=== PATIENT | male | born 1940 | race Caucasian/White ===

== ENCOUNTER 2021-09-28 20:18 | Observation (INO) | payer MEDICARE ==
--- NOTE | 2021-09-28 21:12 | XR ---
EXAMINATION TYPE: XR chest 2V DATE OF EXAM: 09/28/2021 COMPARISON: NONE HISTORY: Chest pain TECHNIQUE: 2 views FINDINGS: Heart is normal. Lungs are clear of infiltrate. No heart failure. There are no hilar masses . Costophrenic angles are clear. IMPRESSION: Normal chest.
[2021-09-28 21:27] LABS: Basophils # (A) 0.1 k/uL (0-0.2); Basophils % (A) 1 %; Eosinophils # (A) 0.2 k/uL (0-0.7); Eosinophils % (A) 3 %; HCT 40.4 % (39.0-53.0); HGB 13.2 gm/dL (13.0-17.5); Lymphocytes # (A) 2.9 k/uL (1.0-4.8); Lymphocytes % (A) 36 %; MCHC 32.7 g/dL (31.0-37.0); MCV 91.5 fL (80.0-100.0); Mean Platelet Volume 9.2; Monocytes # (A) 0.5 k/uL (0-1.0); Monocytes % (A) 6 %; Neutrophils % (A) 51 %; Platelet Count 203 k/uL (150-450); RBC 4.41 m/uL (4.30-5.90); RDW 13.2 % (11.5-15.5); WBC 7.8 k/uL (3.8-10.6)
[2021-09-28 21:38] LABS: INR 0.9 (<1.2); Partial Thromboplastin Time 24.3 sec (22.0-30.0); Prothrombin Time 10.3 sec (9.0-12.0)
[2021-09-28 21:46] LABS: Albumin 4.6 g/dL (3.5-5.0); Calcium 9.5 mg/dL (8.4-10.2); Magnesium 1.7 mg/dL (1.6-2.3); Potassium 4.3 mmol/L (3.5-5.1); Total Bilirubin 0.3 mg/dL (0.2-1.3); Total Protein 7.3 g/dL (6.3-8.2)
--- NOTE | 2021-09-28 23:18 | ED ---
Chest Pain HPI - General Chief Complaint: Chest Pain Stated Complaint: Chest Pain Time Seen by Provider: 09/28/21 23:05 Source: patient Mode of arrival: ambulatory Limitations: no limitations - History of Present Illness Initial Comments: This patient is an 81-year-old man who presents with complaint of chest pain that had come on around 2 PM. The patient states that it has been intermittent. It will last a number of minutes at a time and has recurred about 5 times throughout the day. He has not had any pain since arriving here. He describes as an aching. He indicates to the left of the sternum. He states that it had come on initially while he was at rest, Though he did work out earlier in the day, doing pushups in the morning. He has not had any associated symptoms. No dyspnea, diaphoresis, nausea or vomiting. No palpitations, lightheadedness or syncope. MD Complaint: chest pain -: hour(s) Onset: during rest Pain Location: left chest Pain Radiation: none Quality: aching Consistency: intermittent, now resolved Improves With: nothing Worsens With: nothing Treatments Prior to Arrival: none - Related Data Home Medications Medication Instructions Recorded Confirmed Garlic 1,000 mg PO DAILY 09/29/21 09/29/21 Multivitamins, Thera [Multivitamin 1 tab PO DAILY 09/29/21 09/29/21 (formulary)] metFORMIN HCL [Glucophage] 1,000 mg PO BID-W/MEALS 09/29/21 09/29/21 Allergies Allergy/AdvReac Type Severity Reaction Status Date / Time No Known Allergies Allergy Verified 09/29/21 07:11 Review of Systems ROS Statement: Those systems with pertinent positive or pertinent negative responses have been documented in the HPI. ROS Other: All systems not noted in ROS Statement are negative. Constitutional: Denies: fever, chills Respiratory: Reports: cough (States she has "smoker's cough). Denies: dyspnea Cardiovascular: Reports: as per HPI, chest pain. Denies: palpitations, dyspnea on exertion, orthopnea, edema, syncope Gastrointestinal: Denies: abdominal pain, nausea, vomiting, melena, hematochezia Genitourinary: Denies: dysuria, hematuria Musculoskeletal: Denies: back pain Skin: Denies: rash Neurological: Denies: headache, weakness, numbness EKG Findings - EKG Results: EKG: interpreted by JUANCARLOS DEE, sinus rhythm (Rate 68 bpm), normal axis, normal QRS, normal ST/T, no acute changes Past Medical History Past Medical History: Chest Pain / Angina, COPD, Diabetes Mellitus History of Any Multi-Drug Resistant Organisms: None Reported Past Surgical History: Back Surgery Additional Past Surgical History / Comment(s): Cardiac stent Past Psychological History: No Psychological Hx Reported Smoking Status: Current every day smoker Past Alcohol Use History: Rare Past Drug Use History: Marijuana General Exam Limitations: no limitations General appearance: alert, in no apparent distress Head exam: Present: atraumatic, normocephalic Eye exam: Present: normal appearance. Absent: scleral icterus, conjunctival injection Neck exam: Present: normal inspection Respiratory exam: Present: normal lung sounds bilaterally. Absent: respiratory distress, wheezes, rales, rhonchi, stridor, chest wall tenderness, accessory muscle use Cardiovascular Exam: Present: regular rate, normal rhythm, normal heart sounds. Absent: systolic murmur, diastolic murmur, rubs, gallop GI/Abdominal exam: Present: soft. Absent: distended, tenderness, guarding, rebound, rigid, mass Extremities exam: Present: normal inspection, normal capillary refill. Absent: pedal edema, calf tenderness Back exam: Present: normal inspection. Absent: CVA tenderness (R), CVA tenderness (L) Neurological exam: Present: alert Skin exam: Present: warm, dry, intact, normal color. Absent: rash Course Vital Signs 09/28/21 09/28/21 09/29/21 20:24 23:14 02:00 Temperature 97.5 F L Pulse Rate 82 65 Respiratory 20 16 Rate Blood Pressure 148/79 154/82 141/85 O2 Sat by Pulse 99 98 Oximetry 09/29/21 09/29/21 09/29/21 04:00 06:00 07:57 Temperature 97.7 F Pulse Rate 59 L 63 65 Respiratory 16 16 18 Rate Blood Pressure 141/83 144/82 O2 Sat by Pulse 98 99 Oximetry Procedures - [place] Protocol (Time Out) Nurse: Chikis Mike Disposition Clinical Impression: Chest pain, Elevated troponin I level Disposition: [facility] Condition: Good Is patient prescribed a controlled substance at d/c from ED?: No Time of Disposition: 23:45
[2021-09-28] MEDS ORDERED: ASPIRIN 81 MG PO STA (23:44)
[2021-09-28] MEDS ORDERED: NITROGLYCERIN SL TABS 0.4 MG TAB SUBLINGUAL PRN (23:44)
[2021-09-29] MEDS: SODIUM CHLORIDE 0.9% 1,000 ML IV SCH (00:27)
--- NOTE | 2021-09-29 02:48 | P.HPIM ---
History of Present Illness H&P Date: 09/29/21 The patient is an 81-year-old male with a PMH of coronary artery disease status post stent to LAD 15 years ago, and ongoing tobacco abuse who presents to the emergency room with complaints of chest discomfort. The patient reports that he was at the gym earlier today, doing his regular weight lifting exercises when he suddenly developed sharp left chest and sternal chest discomfort, 10 out of 10, lasting only for a few seconds, resolving spontaneously. He experienced a total of 3 such episodes throughout the day today last of which occurred an hour and half prior to presentation, which prompted him to come to the emergency room. He denies associated shortness of breath, nausea, diaphoresis, or dizziness. He denied fever, chills, cough. EKG in the emergency room revealed sinus rhythm at [address]/T-wave changes noted as reviewed by me. Chest x-ray was unremarkable. Laboratory evaluation revealed a troponin of 0.046. Review of systems: Pertinent positives and negatives as discussed in HPI, a complete review of systems was performed and all other systems are negative. Physical examination: General: non toxic, no distress, appears at stated age, normal weight Derm: no unusual rashes/lesions, warm Head: atraumatic, normocephalic, symmetric Eyes: EOMI, no lid lag, anicteric sclera, pupils equal round reactive to light ENT: Nose and ears atraumatic Neck: No cervical lymphadenopathy, trachea midline, supple Mouth: no lip lesion, mucus membranes moist Cardiovascular: S1S2 reg, no murmur, positive dorsalis pedis pulse bilateral, no edema, left lower costosternal joint tenderness Lungs: CTA bilateral, no rhonchi, no rales, no accessory muscle use Abdominal: soft, nontender to palpation, no guarding Ext: muscle strength 5 out of 5 in all 4 extremities grossly, no gross muscle atrophy, no contractures, Neuro: CN II-XI grossly intact, no gross focal neuro deficits Psych: Alert, oriented, appropriate affect Assessment/plan Atypical chest pain, with borderline troponin elevation -Continue with aspirin, statin -Cardiology consult -Cardiac monitoring -Trend troponin DVT prophylaxis -Heparin subcu The patient is admitted with an anticipated less than 2 midnight stay for evaluation of chest pain. CODE STATUS: Full Code Discussed with: Patient Anticipated discharge date: In a.m. Anticipated discharge place: Home Past Medical History Past Medical History: Chest Pain / Angina, COPD, Diabetes Mellitus History of Any Multi-Drug Resistant Organisms: None Reported Past Surgical History: Back Surgery Additional Past Surgical History / Comment(s): Cardiac stent Past Psychological History: No Psychological Hx Reported Smoking Status: Current every day smoker Past Alcohol Use History: Rare Past Drug Use History: Marijuana Medications and Allergies Allergies Allergy/AdvReac Type Severity Reaction Status Date / Time No Known Allergies Allergy Verified 09/28/21 20:28 Physical Exam Vitals: Vital Signs Temp Pulse Resp BP Pulse Ox 09/28/21 23:14 65 16 154/82 98 09/28/21 20:24 97.5 F L 82 20 148/79 99 Intake and Output 09/28/21 09/28/21 09/29/21 14:59 22:59 06:59 Other: Weight 72.575 kg Results CBC & Chem 7: 09/28/21 21:16 09/28/21 21:16 Labs: Abnormal Lab Results - Last 24 Hours (Table) 09/28/21 09/28/21 09/29/21 Range/Units 21:16 21:16 00:26 Glucose 106 H (74-99) mg/dL Troponin I 0.046 H* 0.048 H* (0.000-0.034) ng/mL
[2021-09-29] MEDS: ATORVASTATIN 80 MG TAB PO SCH ×2 (04:17→20:50)
[2021-09-29] MEDS ORDERED: HEPARIN SODIUM,PORCINE/PF 5,000 UNIT/0.5 ML SYRINGE SQ SCH (08:00)
[2021-09-29] MEDS ORDERED: ASPIRIN 325 MG TAB PO SCH (09:00)
[2021-09-29 09:43] LABS: Chol/HDL Ratio 2.95 Ratio; LDL Cholesterol,Calculated 70.2 mg/dL (0.0-131.0); VLDL Calculation 13.76 mg/dL (5.00-40.00)
[2021-09-29] MEDS ORDERED: HEPARIN SODIUM 1,000 UN/ML (10ML VL) IV ONE (10:10)
[2021-09-29] MEDS ORDERED: HEPARIN SODIUM 1,000 UN/ML (10ML VL) IV PRN (10:10)
[2021-09-29] MEDS ORDERED: HEPARIN SOD,PORK IN 0.45% NACL 25,000 UNIT in 0.45% NACL 1 250ML.BAG IV SCH (10:15)
--- NOTE | 2021-09-29 10:57 | P.CRDCN ---
History of Present Illness History of present illness: HISTORY OF PRESENTING ILLNESS This is a pleasant 81-year-old male past medical history significant for coronary artery disease s/p PCI in 1999 in [place], type 2 diabetes, chronic nicotine dependence. He did follow with Dr. Guerrier, but secondary to insurance issues does not follow with a bereavement program coordinator. We have been asked to see in consultation for chest pain and elevated troponin. Patient presents emergency department with episodes of chest pain that began yesterday. He states that yesterday morning he went to the gym, he did multiple weight lifting exercises including chest exercises on weight machines. When driving home he had 10/10 "intense" sharp left sided chest pain. It lasted about 2-3 seconds and resolved spontaneously. This re-occurred 4-5 times. Non-radiating. Non-exertional. He states this is different than his prior stent placements. He denies any associated shortness of breath, lightheadedness, dizziness, palpitations, diaphoresis, nausea, vomiting. He states to the chest pain returning he took two 81 mg aspirins and presented to the emergency department for further evaluation. His chest pain has resolved. He does have some tenderness to palpation to his chest. Deep breathing does not aggravate his chest pain He denies any further stent placements. He denies any history of hypertension, heart failure, arrhythmia, Stroke. DIAGNOSTICS EKG reveals sinus rhythm, heart rate 68, T wave inversion in lead aVL, no significant ST-T wave abnormalities suggesting ischemia Telemetry tracings indicate sinus rhythm HR 50s-60s Chest xray no acute cardiopulmonary process Laboratory reviewed, troponin 0.043, CBC unremarkable, sodium 139, potassium 4.3, BUN 18, serum creatinine 0.9, magnesium 1.7, triglycerides 68, cholesterol 127, LDL 70, HDL 40. Current home cardiac medications include metformin, multivitamin, garlic, aspirin REVIEW OF SYSTEMS At the time of my exam: CONSTITUTIONAL: Denies fever or chills. CARDIOVASCULAR: Denies chest pain, shortness of breath, orthopnea, PND or palpitations. RESPIRATORY: Denies cough. GASTROINTESTINAL: Denies abdominal pain, diarrhea, constipation, nausea or vomiting. MUSCULOSKELETAL: Denies myalgias. NEUROLOGIC: Denies numbness, tingling, headacbe or weakness. ENDOCRINE: Denies fatigue, weight change, polydipsia or polyurina. GENITOURINARY: Denies burning, hematuria or urgency with micturation. HEMATOLOGIC: Denies history of anemia or bleeding. PHYSICAL EXAMINATION Blood pressure 144/82, heart rate 65, afebrile, saturation 99% room air CONSTITUTIONAL: No apparent distress. HEENT: Head is normocephalic. Pupils are equal, round. Sclerae anicteric. Mucous membranes of the mouth are moist. No JVD. No carotid bruit. CHEST EXAMINATION: Lungs are diminished to auscultation. There is some chest w all tenderness is noted on palpation or with deep breathing. HEART EXAMINATION: Regular rate and rhythm. S1, S2 heard. No murmurs, gallops or rub. ABDOMEN: Soft, nontender. Positive bowel sounds. EXTREMITIES: 2+ peripheral pulses, no lower extremity edema and no calf tenderness. NEUROLOGIC EXAMINATION: Patient is awake, alert and oriented x3. ASSESSMENT Elevated troponin, unclear etiology Chest pain, atypical symptoms however cannot rule out ischemia at this time, concern for possible NSTEMI, possible musculoskeletal component as well Coronary artery disease with PCI in 1999 Type 2 Diabetes Chronic nicotine dependence PLAN Start IV Heparin drip Continue aspirin, statin CK obtained, normal 2-D echocardiogram was obtained which revealed an EF of 5560%, no significant wall motion or valve abnormalities. Continue cardiac telemetry NPO after midnight Plan for cardiac catheterization with Dr. Mg tomorrow morning. I have discussed the risks, benefits and alternative therapies for the above- mentioned procedure and for both sedation/analgesia as well as necessary blood product administration, if indicated, as they pertain to this patient. The patient has indicated understanding and acceptance of the risks and procedures discussed. Questions have been answered appropriately and he is agreeable to move forward with the above-stated procedure. Further recommendations based on clinical course Nurse practitioner note has been reviewed by physician. Signing provider agrees with the documented findings, assessment, and plan of care. Past Medical History Past Medical History: Chest Pain / Angina, COPD, Diabetes Mellitus History of Any Multi-Drug Resistant Organisms: None Reported Past Surgical History: Back Surgery Additional Past Surgical History / Comment(s): Cardiac stent Past Psychological History: No Psychological Hx Reported Smoking Status: Current every day smoker Past Alcohol Use History: Rare Past Drug Use History: Marijuana Medications and Allergies Home Medications Medication Instructions Recorded Confirmed Type Garlic 1,000 mg PO DAILY 09/29/21 09/29/21 History Multivitamins, Thera [Multivitamin 1 tab PO DAILY 09/29/21 09/29/21 History (formulary)] metFORMIN HCL [Glucophage] 1,000 mg PO BID-W/MEALS 09/29/21 09/29/21 History Allergies Allergy/AdvReac Type Severity Reaction Status Date / Time No Known Allergies Allergy Verified 09/29/21 07:11 Physical Exam Vitals: Vital Signs Temp Pulse Resp BP Pulse Ox 09/29/21 06:00 63 16 09/29/21 04:00 59 L 16 141/83 98 09/29/21 02:00 141/85 09/28/21 23:14 65 16 154/82 98 09/28/21 20:24 97.5 F L 82 20 148/79 99 Intake and Output 09/28/21 09/29/21 09/29/21 22:59 06:59 14:59 Other: Weight 72.575 kg Results 09/28/21 21:16 09/28/21 21:16 Cardiac Enzymes 09/28/21 09/28/21 09/29/21 Range/Units 21:16 21:16 00:26 AST 22 (17-59) U/L Troponin I 0.046 H* 0.048 H* (0.000-0.034) ng/mL 09/29/21 Range/Units 04:44 AST (17-59) U/L Troponin I 0.044 H* (0.000-0.034) ng/mL Coagulation 09/28/21 Range/Units 21:16 PT 10.3 (9.0-12.0) sec APTT 24.3 (22.0-30.0) sec CBC 09/28/21 Range/Units 21:16 WBC 7.8 (3.8-10.6) k/uL RBC 4.41 (4.30-5.90) m/uL Hgb 13.2 (13.0-17.5) gm/dL Hct 40.4 (39.0-53.0) % Plt Count 203 (150-450) k/uL Comprehensive Metabolic Panel 09/28/21 Range/Units 21:16 Sodium 139 (137-145) mmol/L Potassium 4.3 (3.5-5.1) mmol/L Chloride 105 (98-107) mmol/L Carbon Dioxide 23 (22-30) mmol/L BUN 18 (9-20) mg/dL Creatinine 0.98 (0.66-1.25) mg/dL Glucose 106 H (74-99) mg/dL Calcium 9.5 (8.4-10.2) mg/dL AST 22 (17-59) U/L ALT 18 (4-49) U/L Alkaline Phosphatase 61 (38-126) U/L Total Protein 7.3 (6.3-8.2) g/dL Albumin 4.6 (3.5-5.0) g/dL Current Medications Generic Name Dose Route Start Last Admin Trade Name Freq PRN Reason Stop Dose Admin Aspirin 325 mg 09/29/21 09:00 Aspirin 325 Mg Tab PO DAILY JAVIER Atorvastatin Calcium 80 mg 09/29/21 02:47 09/29/21 04:17 Atorvastatin 80 Mg Tab PO 80 mg HS JAVIER Administration Heparin Sodium (Porcine) 5,000 unit 09/29/21 08:00 Heparin Sodium,Porcine/Pf 5,000 Unit/0.5 Ml Syringe SQ Q8HR JAVIER Sodium Chloride 1,000 mls @ 20 mls/hr 09/28/21 23:45 09/29/21 00:27 Saline 0.9% IV 20 mls/hr .Q24H JAVIER Administration Nitroglycerin 0.4 mg 09/28/21 23:44 Nitroglycerin Sl Tabs 0.4 Mg Tab SUBLINGUAL Q5M PRN Chest Pain Intake and Output 09/28/21 09/29/21 09/29/21 22:59 06:59 14:59 Other: Weight 72.575 kg 09/28/21 21:16 09/28/21 21:16
--- NOTE | 2021-09-29 11:02 | CA ---
Transthoracic Echo Report Name: Imer Rivas Age: 81 Gender: M : 1940 Exam Date: 09/29/2021 10:35 Exam Location: [facility] Ht (in): 71 Wt (lb): 160 Ordering Physician: Abigail Turner Attending/Referring Phys: Car Cleaner Usha Lamb RDCS Procedure CPT: Indications: elevated troponin Cardiac Hx: Technical Quality: Good Contrast 1: Total Dose (mL): Contrast 2: Total Dose (mL): MEASUREMENTS (Male / Female) Normal Values 2D ECHO LV Diastolic Diameter PLAX 2.8 cm 4.2 - 5.9 / 3.9 - 5.3 cm LV Systolic Diameter PLAX 1.1 cm IVS Diastolic Thickness 1.1 cm 0.6 - 1.0 / 0.6 - 0.9 cm LVPW Diastolic Thickness 0.8 cm 0.6 - 1.0 / 0.6 - 0.9 cm LV Relative Wall Thickness 0.7 LA Volume 28.7 cm??? 18 - 58 / 22 - 52 cm??? M-MODE Aortic Root Diameter MM 3.9 cm LA Systolic Diameter MM 2.8 cm LA Ao Ratio MM 0.7 MV E Point Septal Separation 2.8 cm AV Cusp Separation MM 2.3 cm DOPPLER AV Peak Velocity 87.1 cm/s AV Peak Gradient 3.0 mmHg MV Area PHT 3.3 cm??? MR Peak Velocity 236.9 cm/s MR Peak Gradient 22.4 mmHg Mitral E Point Velocity 73.7 cm/s Mitral A Point Velocity 83.7 cm/s Mitral E to A Ratio 0.9 MV Deceleration Time 229.8 ms MV E' Velocity 5.8 cm/s Mitral E to MV E' Ratio 12.6 TR Peak Velocity 69.7 cm/s TR Peak Gradient 1.9 mmHg Right Ventricular Systolic Press 6.9 mmHg FINDINGS Left Ventricle Normal Left ventricular size, wall thickness, systolic function with no obvious regional wall motion abnormalities. Normal Left ventricular diastolic filling pattern. Left ventricular ejection fraction is estimated at 55-60 %. Right Ventricle The right ventricle is normal in size and function. Right Atrium The right atrium is normal in size. Left Atrium The left atrium is normal in size. Mitral Valve Structurally normal mitral valve without significant stenosis or prolapse. There is mild mitral regurgitation. Aortic Valve Structurally normal aortic valve without significant sclerosis or stenosis. There is no aortic regurgitation. Tricuspid Valve Structurally normal tricuspid valve without significant stenosis. Pulmonary artery systolic pressure is normal. Mild tricuspid regurgitation. Pulmonic Valve Structurally normal pulmonic valve without significant stenosis. There is no pulmonic regurgitation. Pericardium Normal pericardium without effusion. Aorta Normal aortic root dimension. CONCLUSIONS #1. Normal left ventricular size and function. #2. Mild tricuspid regurgitation Previewed by: Dr. Vadim Haley MD (Electronically Signed) Final Date: 29 September 2021 11:01
[2021-09-29 11:21] LABS: INR 0.9 (<1.2); Partial Thromboplastin Time 24.3 sec (22.0-30.0); Prothrombin Time 10.4 sec (9.0-12.0)
[2021-09-29 12:02] LABS: Glucose,Whole Blood 103 mg/dL (75-99)
[2021-09-29] MEDS ORDERED: ALPRAZolam 0.5 MG TAB PO PRN (12:08)
[2021-09-29] MEDS ORDERED: ALPRAZolam 0.25 MG TAB PO PRN (12:08)
[2021-09-29 16:14] LABS: Glucose,Whole Blood 112 mg/dL (75-99)
[2021-09-29 20:55] LABS: Glucose,Whole Blood 109 mg/dL (75-99)
[2021-09-30] MEDS ORDERED: SODIUM CHLORIDE 0.9% 1,000 ML in EMPTY BAG 1 BAG IV SCH
[2021-09-30] MEDS: SODIUM CHLORIDE 0.9% 1,000 ML IV SCH (00:37)
[2021-09-30 05:30] LABS: Glucose,Whole Blood 107 mg/dL (75-99)
[2021-09-30] MEDS ORDERED: HEPARIN SODIUM,PORCINE 2,500 UNIT in SODIUM CHLORIDE 0.9% 250 ML IRRIGATION PRN (07:00)
[2021-09-30] MEDS ORDERED: HEPARIN SODIUM,PORCINE 10,000 UNIT in SODIUM CHLORIDE 0.9% 1,000 ML IRRIGATION PRN (07:00)
[2021-09-30] MEDS ORDERED: ASPIRIN 325 MG TAB PO STA (08:46)
[2021-09-30] MEDS ORDERED: ASPIRIN 81 MG PO SCH (09:00)
[2021-09-30] MEDS ORDERED: VERAPAMIL 2.5 MG/ML 2 ML AMP ONE (10:13)
[2021-09-30] MEDS ORDERED: HEPARIN SODIUM 1,000 UN/ML (10ML VL) ONE (10:41)
[2021-09-30] MEDS ORDERED: IV FLUID CONTINUATION 250 ML IV ONE (10:53)
[2021-09-30] MEDS: MIDAZOLAM 2 MG/2 ML VIAL IVP ONE ×2 (10:58→11:04)
[2021-09-30] MEDS ORDERED: LIDOCAINE 1% INJ 10MG/ML (30 ML VIAL-PF) SQ ONE (11:03)
[2021-09-30] MEDS ORDERED: HEPARIN SODIUM 1,000 UN/ML (10ML VL) IVP ONE (11:07)
[2021-09-30] MEDS ORDERED: IOPAMIDOL-370 125ML BTL INJ ONE (11:19)
[2021-09-30] MEDS ORDERED: RX INFO: IV CONTRAST WAS GIVEN 1 EACH MISC MISCELLANE PRN (11:30)
--- NOTE | 2021-09-30 11:42 | P.CARDCATH ---
Description of Procedure: Procedure: Left heart catheterization and coronary angiography Performed by: Dr. NILAM Mg Moderate conscious sedation time was 20 minutes. Patient was administered 1 circumflex oxygen saturation hemodynamics and EKG were monitored closely History: This patient was admitted to the hospital with episode of chest pain had mild troponin elevation. He has history of type 2 diabetes takes metformin and also has history of stenting of one of his coronary arteries details are not available and this was nearly 20 years ago. In view of elevated troponin risk factors and previous PCI he was advised cardiac catheter due discussion regarding risks and benefits and options. Patient understood R details and wish to proceed with the procedure Patient was referred for cardiac catheterization to evaluate for progression of CAD. Procedure Details: The risks, benefits, complications, treatment options, and expected outcomes were discussed with the patient. The patient and/or family concurred with the proposed plan, giving informed consent. Patient was brought to the fish hatchery laborer after IV hydration was begun and oral premedication was given. Patient was further sedated with midazolam. Patient was prepped and draped in the usual manner. Under strict aseptic precautions and local anesthesia a 6 Chinese introducer was placed in the right radial artery. Using a JL 3/5 and a JR 4/0 catheters I performed coronary angiography and the same JR catheter was used to check LV pressures and LV gram was not performed. After the procedure was completed the sheaths and catheters were all removed. Hemostasis was achieved with TR band. Saturation in the fingers of the right hand was about 99%. Moderate conscious sedation time was 20 minutes. Patient's oxygen saturation hemodynamics and EKG were monitored closely. Findings: Hemodynamics: The left ventricle end-diastolic pressure was 68 mmHg without any gradient across aortic valve Left Main: Shock patent vessel no significant disease bifurcates into LAD and circumflex. Mild calcification LAD: This vessel is of fair caliber and has mild to moderate calcification that is about a 35-45% lesion in the LAD. Mid LAD was stented, the stented segment is widely patent with good flow. There is a 35-45% narrowing in the proximal portion not critical flow is brisk gives off septal and diagonal branches and runs all the way to the apex supplying a sizable amount of myocardium. In the proximal one third of the vessel there is about a 40% narrowing smoked not significant. CIRC: This is a dominant vessel moderate calcification proximally has about a 40% narrowing then and gives off an obtuse minor branch which has another 40% narrowing and then continues in the AV groove and distally gives off PDA and PLV branches both of which have minor irregularities. There are multiple areas of narrowing of anywhere between 35-45% within the circumflex and obtuse marginal but no critical lesions are noted. RCA: This is a nondominant vessel FAIR caliber to start with but distally become smaller gives off some acute marginal branches, limited amount of myocardium being supplied by 8. Proximal portion is a 40% lesion Closure Device: TR band Complications: None Estimated Blood Loss: Minimal Impression: Normal filling pressures no gradient across aortic valve, left dominant system, previously stented mid LAD is widely patent with anywhere from 35-45% lesions involving the LAD proximal one third is a 40% lesion. Circumflex is dominant has a OM lesion and proximal circumflex of about 40% stenosis. RCA nondominant no significant disease Pre Procedure Diagnosis: CAD Final Post Procedure Diagnosis: Moderate CAD triple vessel Recommendation: Aggressive medical therapy and risk factor modification discussed with patient no family available Complications: None; patient tolerated the procedure well. Disposition: To 3 S. - hemodynamically stable. Condition: Stable Discharge Disposition: Per Dr. Thorpe
[2021-09-30 11:48] LABS: Glucose,Whole Blood 112 mg/dL (75-99)
[2021-09-30 12:40] LABS: Basophils # (A) 0.1 k/uL (0-0.2); Basophils % (A) 1 %; Eosinophils # (A) 0.1 k/uL (0-0.7); Eosinophils % (A) 2 %; HCT 43.7 % (39.0-53.0); HGB 13.6 gm/dL (13.0-17.5); Lymphocytes # (A) 2.2 k/uL (1.0-4.8); Lymphocytes % (A) 33 %; MCH 28.9 pg (25.0-35.0); MCHC 31.2 g/dL (31.0-37.0); MCV 92.8 fL (80.0-100.0); Mean Platelet Volume 8.9; Monocytes # (A) 0.4 k/uL (0-1.0); Monocytes % (A) 5 %; Neutrophils # (A) 3.7 k/uL (1.3-7.7); Neutrophils % (A) 56 %; Platelet Count 196 k/uL (150-450); RBC 4.71 m/uL (4.30-5.90); RDW 13.1 % (11.5-15.5); WBC 6.6 k/uL (3.8-10.6)
[2021-09-30 12:54] LABS: African American GFR (CKD) >90 (>60 ml/min/1.73 sqM); Anion Gap 8 mmol/L; Blood Urea Nitrogen 15 mg/dL (9-20); Carbon Dioxide 21 mmol/L (22-30); Chloride 110 mmol/L (98-107); Glucose 106 mg/dL (74-99); Non-African American GFR(CKD) 82 (>60 ml/min/1.73 sqM); Potassium 4.6 mmol/L (3.5-5.1); Sodium 139 mmol/L (137-145)
--- NOTE | 2021-09-30 13:09 | P.DS ---
Providers Date of admission: 09/30/21 07:18 Expected date of discharge: 09/30/21 Attending physician: Jesse Brownlee MD Consults: 09/28/21 23:44 Consult Physician Routine Consulting Provider: Keith Pollard Consult Reason/Comments: chest pain Do you want consulting provider notified?: Yes Primary care physician: Tiffany [facility] Course: Chest Pain Multi-vessel CAD HTN HLD DM, type II The patient is an 81-year-old male with a PMH of coronary artery disease status post stent to LAD 15 years ago, and ongoing tobacco abuse who presents to the emergency room with complaints of chest discomfort. EKG in the emergency room revealed sinus rhythm at [address]/T-wave changes noted as reviewed by me. Chest x-ray was unremarkable. Laboratory evaluation revealed a troponin of 0.046, and trended to 0.046. Pt was seen by cardiology and stared on a heparin gtt. [facility], which showed multi-vessel disease, but no critical lesions. Recommendations by cardiology were for aggressive risk factor modification. Patient was discharged with PCP and cardiology follow up with new medications for aspirin, metoprolol, and statin. I spent 32 minutes coordinating this discharge. Gen: awake, alert HEENT: normocephalic, atraumatic, good hearing acuity, moist mucous membranes Resp: good air exchange, breathing comfortably with no accessory muscle use CVS: good distal perfusion x 4, GI: soft, NTTP, ND : no SPT, no CVAT, howard catheter not present MSK: no pitting edema, no clubbing Neuro: non-focal, moving all extremities Psych: cooperative, euthymic mood Patient Condition at Discharge: Good Plan - Discharge Summary Discharge Rx Participant: Yes New Discharge Prescriptions: New Losartan [Cozaar] 25 mg PO DAILY #30 tab Aspirin 81 mg PO DAILY #30 tab Atorvastatin [Lipitor] 80 mg PO HS #30 tab Metoprolol Tartrate [Lopressor] 12.5 mg PO BID #60 tablet Nitroglycerin Sl Tabs [Nitrostat] 0.4 mg SUBLINGUAL Q5M PRN #30 tab PRN Reason: Chest Pain Continue Multivitamins, Thera [Multivitamin (formulary)] 1 tab PO DAILY Garlic 1,000 mg PO DAILY metFORMIN HCL [Glucophage] 1,000 mg PO BID-W/MEALS Discharge Medication List Garlic 1,000 mg PO DAILY 09/29/21 [History] Multivitamins, Thera [Multivitamin (formulary)] 1 tab PO DAILY 09/29/21 [History] metFORMIN HCL [Glucophage] 1,000 mg PO BID-W/MEALS 09/29/21 [History] Aspirin 81 mg PO DAILY #30 tab 09/30/21 [Rx] Atorvastatin [Lipitor] 80 mg PO HS #30 tab 09/30/21 [Rx] Losartan [Cozaar] 25 mg PO DAILY #30 tab 09/30/21 [Rx] Metoprolol Tartrate [Lopressor] 12.5 mg PO BID #60 tablet 09/30/21 [Rx] Nitroglycerin Sl Tabs [Nitrostat] 0.4 mg SUBLINGUAL Q5M PRN #30 tab 09/30/21 [Rx] Follow up Appointment(s)/Referral(s): Mirza Thorpe MD [STAFF PHYSICIAN] - 1 Week Tiffany Duval PAC [Primary Care Provider] - 1-2 days Patient Instructions/Handouts: Chest Pain (ED) Discharge Disposition: HOME SELF-CARE
[2021-09-30 15:51] VITALS: RESP 16; TEMP 97.8
[2021-09-30 15:59] VITALS: BP 148/80; PULSE 79
[2021-09-30 16:38] LABS: Glucose,Whole Blood 115 mg/dL (75-99)
[2021-10-01] MEDS ORDERED: ASPIRIN 81 MG PO SCH (09:00)
[2021-10-01] MEDS ORDERED: LOSARTAN 25 MG TAB PO SCH (09:00)
== END 2021-09-30 18:39 | disposition home or self-care (01) ==
LOC: EC 20:18 → 3SCARD 23:44 → INTOOBSV 09-30 07:18 → OBSVTOIN 09-30 07:18 → UNDODISIN 09-30 18:39
PROVIDERS: ADMIT Internal Medicine; ATTEND Internal Medicine
DX: R07.89 Other chest pain (principal); R77.8 Other specified abnormalities of plasma proteins; I25.10 Atherosclerotic heart disease of native coronary artery without angina pectoris; I10 Essential (primary) hypertension; E78.5 Hyperlipidemia, unspecified; E78.00 Pure hypercholesterolemia, unspecified; E11.9 Type 2 diabetes mellitus without complications; Z95.5 Presence of coronary angioplasty implant and graft; F17.200 Nicotine dependence, unspecified, uncomplicated; I08.1 Rheumatic disorders of both mitral and tricuspid valves; J44.9 Chronic obstructive pulmonary disease, unspecified; Z79.84 Long term (current) use of oral hypoglycemic drugs; Z71.6 Tobacco abuse counseling
CPT/HCPCS: 96376; 96365; 99285; 36415; 93005; 93306; 93458; 80061; 80053; 80048; 82550; 83735; 84484 ×2; 85025 ×2; 85610 ×2; 85730 ×3; 71046; G0378 ×2; C1769; C1894; J2250; J2001; J1644 ×3; Q9967; 96374

== ENCOUNTER 2023-11-20 21:47 | Emergency (ER) | payer MEDICARE ==
--- NOTE | 2023-11-20 22:27 | ED ---
Chest Pain HPI - General Chief Complaint: Chest Pain Stated Complaint: Chest Pain,Sob Time Seen by Provider: 11/20/23 22:04 Source: patient Mode of arrival: ambulatory Limitations: no limitations - History of Present Illness Initial Comments: Patient is an 83-year-old man presenting to evaluation for left chest pain that does radiate to the back. Patient states that it came on approximately 2 hours ago while at rest. The patient has a friend who had nitroglycerin and he took 1 of these as well as an aspirin and he notes that the pain did resolve. He has had a couple of doses of the pain. He states that these are very brief but intense. They seem to come and go over a few seconds. He has not noted accompanying symptoms. He is having cough now but states that he had choked on the aspirin that he took. MD Complaint: chest pain -: hour(s) Onset: during rest Pain Location: left chest Pain Radiation: back Severity: moderate Quality: sharp Consistency: intermittent, now resolved Improves With: nitroglycerin, other Worsens With: nothing Treatments Prior to Arrival: none - Related Data Home Medications Medication Instructions Recorded Confirmed Garlic 1,000 mg PO DAILY 09/29/21 09/29/21 Multivitamins, Thera [Multivitamin 1 tab PO DAILY 09/29/21 09/29/21 (formulary)] metFORMIN HCL [Glucophage] 1,000 mg PO BID-W/MEALS 09/29/21 09/29/21 Previous Rx's Medication Instructions Recorded Aspirin 81 mg PO DAILY #30 tab 09/30/21 Atorvastatin [Lipitor] 80 mg PO HS #30 tab 09/30/21 Losartan [Cozaar] 25 mg PO DAILY #30 tab 09/30/21 Metoprolol Tartrate [Lopressor] 12.5 mg PO BID #60 tablet 09/30/21 Nitroglycerin Sl Tabs [Nitrostat] 0.4 mg SUBLINGUAL Q5M PRN #30 tab 09/30/21 Allergies Allergy/AdvReac Type Severity Reaction Status Date / Time No Known Allergies Allergy Verified 11/20/23 21:56 Review of Systems ROS Statement: Those systems with pertinent positive or pertinent negative responses have been documented in the HPI. ROS Other: All systems not noted in ROS Statement are negative. Constitutional: Denies: fever, chills Respiratory: Reports: as per HPI, cough. Denies: dyspnea, wheezes, hemoptysis Cardiovascular: Reports: chest pain. Denies: palpitations, orthopnea, edema, syncope Gastrointestinal: Denies: abdominal pain, vomiting, diarrhea Genitourinary: Denies: dysuria, hematuria Musculoskeletal: Denies: back pain Skin: Denies: rash Neurological: Denies: headache, weakness EKG Findings - EKG Results: EKG: interpreted by ERMD, sinus rhythm (Rate 63 bpm), normal axis, normal ST/T - MS, Pacemaker, Normal: Myocardial infarction: septal MS (old age or indeterminate) Past Medical History Past Medical History: Chest Pain / Angina, COPD, Diabetes Mellitus Last Myocardial Infarction Date:: 04/1999 History of Any Multi-Drug Resistant Organisms: None Reported Past Surgical History: Back Surgery Additional Past Surgical History / Comment(s): Cardiac stent Past Anesthesia/Blood Transfusion Reactions: No Reported Reaction Past Psychological History: No Psychological Hx Reported Smoking Status: Current every day smoker Past Alcohol Use History: Rare Past Drug Use History: Marijuana General Exam General appearance: alert, in no apparent distress Head exam: Present: atraumatic, normocephalic Eye exam: Present: normal appearance. Absent: scleral icterus, conjunctival injection ENT exam: Present: normal oropharynx Neck exam: Present: normal inspection Respiratory exam: Present: normal lung sounds bilaterally. Absent: respiratory distress, wheezes, rales, rhonchi, stridor, accessory muscle use Cardiovascular Exam: Present: regular rate, normal rhythm, normal heart sounds. Absent: systolic murmur, diastolic murmur, rubs, gallop GI/Abdominal exam: Present: soft. Absent: distended, tenderness, guarding, rebound, rigid, mass Extremities exam: Present: normal inspection, normal capillary refill. Absent: pedal edema, calf tenderness Back exam: Present: normal inspection. Absent: CVA tenderness (R), CVA tenderness (L) Neurological exam: Present: alert Skin exam: Present: warm, dry, intact, normal color. Absent: rash Course Vital Signs 11/20/23 11/21/23 11/21/23 21:51 00:03 01:06 Temperature 97.4 F L Pulse Rate 80 66 69 Respiratory 18 18 18 Rate Blood Pressure 111/70 124/82 115/82 O2 Sat by Pulse 99 95 99 Oximetry 07/31/24 07/31/24 02:07 03:20 Temperature 97.9 F Pulse Rate 70 67 Respiratory 17 16 Rate Blood Pressure 138/75 140/86 O2 Sat by Pulse 98 99 Oximetry Chest Pain MDM - MDM The patient had chest x-ray that I interpreted as negative for acute infiltrate, pneumothorax, congestive heart failure The patient had CT angiogram that I interpreted as negative for acute pulmonary embolism Was pt. sent in by a medical professional or institution (MIGUELINA Leija, [employer], urgent care, hospital, or senior living...) When possible be specific @ -[No] Did you speak to anyone other than the patient for history (EMS, parent, family, police, friend...)? What history was obtained from this source @ -[No] Did you review nursing and triage notes (agree or disagree)? Why? @ -[I reviewed and agree with nursing and triage notes] Were old charts reviewed (outside hosp., previous admission, EMS record, old EKG, old radiological studies, urgent care reports/EKG's, senior living records)? Report findings @ -[No old charts were reviewed] Differential Diagnosis (chest pain, altered mental status, abdominal pain women, abdominal pain men, vaginal bleeding, weakness, fever, dyspnea, syncope, headache, dizziness, GI bleed, back pain, seizure, CVA, palpatations, mental health, musculoskeletal)? @ -[not applicable] EKG interpreted by me (3pts min.). @ -[I interpreted as above X-rays interpreted by me (1pt min.). @ -[I interpreted as above CT interpreted by me (1pt min.). @ -[I interpreted as above U/S interpreted by me (1pt. min.). @ -[None done] What testing was considered but not performed or refused? (CT, X-rays, U/S, labs)? Why? @ -[None] What meds were considered but not given or refused? Why? @ -[None] Did you discuss the management of the patient with other professionals (professionals i.e. MIGUELINA Leija, [employer], lab, RT, psych nurse, drug abuse social worker, specialty development consultant, teacher, community resource officer, trimming caser)? Give summary @ -[No] Was smoking cessation discussed for >3mins.? @ -[No] Was critical care preformed (if so, how long)? @ -[No] Were there social determinants of health that impacted care today? How? (Homelessness, low income, unemployed, alcoholism, drug addiction, transportation, low edu. Level, literacy, decrease access to med. care, longterm, rehab)? @ -[No] Was there de-escalation of care discussed even if they declined (Discuss DNR or withdrawal of care, Hospice)? DNR status @ -[No] What co-morbidities impacted this encounter? (DM, HTN, Smoking, COPD, CAD, Cancer, CVA, ARF, Chemo, Hep., AIDS, mental health diagnosis, sleep apnea, morbid obesity)? @ -[COPD, hypertension Was patient admitted / discharged? Hospital course, mention meds given and route, prescriptions, significant lab abnormalities, going to OR and other pertinent info. @ -[Patient is an 83-year-old man who presents with episode of chest pain. His workup is unremarkable and his symptoms have all resolved. I did offer admission to have a cardiology consultation, but at this point the patient feels well and wants to see them as outpatient patient understands there is some risk associated with leaving. He will return should symptoms recur. Undiagnosed new problem with uncertain prognosis? @ -[No] Drug Therapy requiring intensive monitoring for toxicity (Heparin, Nitro, Insulin, Cardizem)? @ -[No] Were any procedures done? @ -[No] Diagnosis/symptom? @ -[Acute chest pain Acute, or Chronic, or Acute on Chronic? @ -[Acute Uncomplicated (without systemic symptoms) or Complicated (systemic symptoms)? @ -[unComplicated Side effects of treatment? @ -[No] Exacerbation, Progression, or Severe Exacerbation? @ -[No] Poses a threat to life or bodily function? How? (Chest pain, USA, MS, pneumonia, PE, COPD, DKA, ARF, appy, cholecystitis, CVA, Diverticulitis, Homicidal, Suicidal, threat to staff... and all critical care pts) @ -[There is some risk, patient to return if symptoms recur Disposition Clinical Impression: Chest pain Disposition: HOME SELF-CARE Condition: Good Instructions (If sedation given, give patient instructions): Chest Pain (ED) Is patient prescribed a controlled substance at d/c from ED?: No Referrals: Tiffany Duval PAC [Primary Care Provider] - 1-2 days
[2023-11-20 22:51] LABS: Basophils % (A) 0 %; Eosinophils # (A) 0.2 k/uL (0-0.7); Eosinophils % (A) 2 %; HCT 37.5 % (39.0-53.0); Lymphocytes # (A) 2.1 k/uL (1.0-4.8); Lymphocytes % (A) 27 %; MCH 31.1 pg (25.0-35.0); MCHC 34.7 g/dL (31.0-37.0); MCV 89.6 fL (80.0-100.0); Mean Platelet Volume 8.8; Monocytes # (A) 0.5 k/uL (0-1.0); Monocytes % (A) 6 %; Neutrophils % (A) 63 %; Platelet Count 211 k/uL (150-450); RBC 4.19 m/uL (4.30-5.90); RDW 13.5 % (11.5-15.5)
[2023-11-20 23:01] LABS: ALT 18 U/L (4-49); AST 21 U/L (17-59); African American GFR (CKD) 85 (>60 ml/min/1.73 sqM); Albumin 4.1 g/dL (3.5-5.0); Alkaline Phosphatase 63 U/L (38-126); Anion Gap 11 mmol/L; Blood Urea Nitrogen 17 mg/dL (9-20); Calcium 9.4 mg/dL (8.4-10.2); Carbon Dioxide 18 mmol/L (22-30); Chloride 107 mmol/L (98-107); Glucose 97 mg/dL (74-99); Magnesium 1.7 mg/dL (1.6-2.3); Non-African American GFR(CKD) 73 (>60 ml/min/1.73 sqM); Sodium 136 mmol/L (137-145); Total Bilirubin 0.4 mg/dL (0.2-1.3); Total Protein 6.5 g/dL (6.3-8.2)
[2023-11-20 23:10] LABS: Prothrombin Time 10.7 sec (10.0-12.5)
--- NOTE | 2023-11-20 23:11 | XR ---
EXAMINATION TYPE: XR chest 2V DATE OF EXAM: 11/20/2023 10:51 PM CLINICAL INDICATION:Male, 83 years old with history of Chest Pain; COMPARISON: 09/28/2021 TECHNIQUE: XR chest 2V Frontal view of the chest. FINDINGS: Lungs/Pleura: There is flattening of the diaphragm with increased lucency of the lungs. No evidence o f pneumothorax, pleural effusion or focal consolidation. Pulmonary vascularity: Unremarkable. Heart/mediastinum: Cardiomediastinal silhouette is unremarkable. Musculoskeletal: No acute osseous pathology. There is fixation hardware in the lower cervical spine. IMPRESSION: 1. No acute cardiopulmonary disease process. 2. COPD changes.
--- NOTE | 2023-11-21 01:35 | CT ---
EXAM: CT Angiography Chest With Intravenous Contrast CLINICAL HISTORY: ITS.REASON CT Reason: chest pain, possible PE TECHNIQUE: Axial computed tomographic angiography images of the chest with intravenous contrast. CTDI is 23 mGy and DLP is 271.6 mGy-cm. This CT exam was performed using one or more of the following dose reduction techniques: automated exposure control, adjustment of the mA and/or kV according to patient size, and/or use of iterative reconstruction technique. MIP reconstructed images were created and reviewed. COMPARISON: No relevant prior studies available. FINDINGS: Pulmonary arteries: Unremarkable. No acute pulmonary embolism. Aorta: Atherosclerotic changes of the aorta. No thoracic aortic aneurysm. Lungs: Mild-moderate centrilobular emphysema. Atelectasis at the lung bases. No mass. Pleural space: Unremarkable. No significant effusion. No pneumothorax. Heart: Unremarkable. No cardiomegaly. No significant pericardial effusion. No evidence of RV dysfunction. Bones/joints: Degenerative changes of the spine. No acute fracture. No dislocation. Soft tissues: Unremarkable. Lymph nodes: Calcified LEFT hilar lymph nodes. Spleen: Splenic granulomas. IMPRESSION: No acute findings in the visualized arteries of the chest.
[2023-11-21 03:23] VITALS: BP 140/86; PULSE 67; RESP 16; TEMP 97.9
--- NOTE | 2023-12-14 15:55 | PCN ---
PROCEDURE NOTE Bronchoscopy endobronchial lavage PREOPERATIVE DIAGNOSES: COPD and persistent shortness of breath, recurrent pneumonias, recurrent tracheobronchitis. POSTOPERATIVE DIAGNOSES: Severe tracheobronchomalacia and mucus plugging. PROCEDURE: This procedure was done under conscious sedation. Anesthetic was administered by anesthesia at the bedside. After achieving adequate sedation, the flexible bronchoscope was introduced to the left nostril and was advanced to upper airway. Examination of the posterior oropharynx, larynx, epiglottis, and vocal cords was done and all of the upper airway structures were within normal limits. Then the bronchoscope was moved to the upper trachea and examination of the tracheobronchial tree was done. Severe tracheobronchomalacia and retained secretions and mucus plugs identified throughout the airways bilaterally. Therapeutic airway suctioning was done. Bronchial mucosa was quite inflamed and erythematous. After performing therapeutic airway suctioning, the airway inspection was completed and the right upper lobe bronchus, right middle and left lower lobe bronchus, left upper and left lower lobe bronchi along with various segments on the right and the left were seen and inspected. They were all patent and within normal limits. A bronchoalveolar lavage of the right lower lobe was done. A total of 10 mL of fluid was suctioned back after infusing 40 mL of saline. No complications. Bronchoscope was removed. The patient was transferred to recovery room in stable condition. MMODL / IJN: [id number] / MTDD
== END 2023-11-21 03:22 | disposition home or self-care (01) ==
LOC: EC 21:47
DX: I10 Essential (primary) hypertension (principal); J44.9 Chronic obstructive pulmonary disease, unspecified; F17.200 Nicotine dependence, unspecified, uncomplicated
CPT/HCPCS: 36415; 93005; 85379; 80053; 83735; 84484; 85025; 85610; 85730; 71046; 71275; 99285; Q9967